=== PATIENT | female | born 1955 | race Caucasian/White ===

== ENCOUNTER → 2018-12-06 17:28 | Outpatient (CLI) | payer OTHER ==
[2014-11-01 09:02] VITALS: BMI 38.8
[~2018-12-06 17:28] MED LIST: CYMBALTA30 MG PO; HYDROCODONE-APA1 TAB; MULTIPLE VITAMI1 TA1 PO; RELAFEN500 MG PO; RESTORIL15 MG PO; SYNTHROID75 MCG PO; VITAMIN D31000 UNIT PO
== END | disposition home or self-care (01) ==
LOC: D.LABREF 17:28
PROVIDERS: ATTEND Orthopaedic Surgery
DX: M19.012 Primary osteoarthritis, left shoulder (principal)

== ENCOUNTER → 2019-11-07 12:05 | Outpatient (CLI) | payer BC ==
[2019-05-01 12:35] VITALS: BMI 38.8
[~2019-11-07 12:05] MED LIST changes: +COREG25 MG PO; +DIOVAN320 MG PO; +PERCOCET 10-321 EAC1 PO
[2019-11-07 12:30] LABS: BASOPHILS 0.2 % (0-2); EOSINOPHILS 1.1 % (0-7); HEMATOCRIT 39.3 % (36.0-48.0); HEMOGLOBIN 12.6 g/dL (12-16); IMMATURE GRANULOCYTES 0.3 % (0-5); LYMPHOCYTES 34.2 % (15-50); MCH 30.4 pg (26.0-34.0); MCHC 32.1 g/dL (31.0-37.0); MCV 94.9 fL (80.0-100.0); MEAN PLATELET VOLUME 9.4 fL (7.4-10.4); MONOCYTES 5.9 % (2-11); NEUTROPHILS 58.3 % (40-80); PLATELET COUNT 239 10x3/uL (130-400); RBC 4.14 10x6/uL (4.00-5.40); RDW 13.7 % (11.5-14.5); WBC 6.3 10x3/uL (4.8-10.8)
[2019-11-07 12:49] LABS: ALBUMIN 3.9 g/dL (3.4-5.0); ANION GAP 9.2 mmol/L (8-16); BILIRUBIN - TOTAL 0.29 mg/dL (0.2-1.3); C-REACTIVE PROTEIN 1.1 mg/dL (0.0-0.9); CARBON DIOXIDE 31.7 mmol/L (21.0-32.0); CREATININE - SERUM 0.9 mg/dL (0.6-1.3); POTASSIUM - SERUM 4.9 mmol/L (3.5-5.1); PROTEIN - SERUM 7.6 g/dL (6.4-8.2)
[2019-11-07 13:41] LABS: ERYTHROCYTE SEDIMENTATION RATE 12 mm/hr (0-30)
== END | disposition home or self-care (01) ==
LOC: D.LAB 12:05
PROVIDERS: ATTEND Orthopaedic Surgery
DX: M25.511 Pain in right shoulder (principal)

== ENCOUNTER → 2019-11-15 11:48 | Outpatient (CLI) | payer BC ==
[2019-05-01 12:35] VITALS: BMI 38.8
== END | disposition home or self-care (01) ==
LOC: D.NM 11:45
PROVIDERS: ATTEND Orthopaedic Surgery
DX: Z96.611 Presence of right artificial shoulder joint (principal)

== ENCOUNTER → 2019-11-22 18:37 | Outpatient (CLI) | payer BC ==
[2019-05-01 12:35] VITALS: BMI 38.8
== END | disposition home or self-care (01) ==
LOC: D.LABREF 18:37
PROVIDERS: ATTEND Orthopaedic Surgery
DX: M25.511 Pain in right shoulder (principal)

== ENCOUNTER 2019-11-27 15:14 | Inpatient (IN) | payer BC ==
[~2019-11-27] VITALS: Ht 177.8 cm; Wt 118.2 kg
[~2019-11-27 15:14] MED LIST changes: -VITAMIN D31000 UNIT PO; +Vitamin D PO
[2019-12-06] MEDS ORDERED: MUPIROCIN22 GM TOPICAL (13:32)
[2019-12-06 14:28] LABS: BASOPHILS 0.3 % (0-2); EOSINOPHILS 1.9 % (0-7); HEMATOCRIT 36.7 % (36.0-48.0); HEMOGLOBIN 11.9 g/dL (12-16); IMMATURE GRANULOCYTES 0.3 % (0-5); MCHC 32.4 g/dL (31.0-37.0); MCV 95.6 fL (80.0-100.0); MEAN PLATELET VOLUME 9.3 fL (7.4-10.4); MONOCYTES 7.8 % (2-11); NEUTROPHILS 56.7 % (40-80); PLATELET COUNT 233 10x3/uL (130-400); RBC 3.84 10x6/uL (4.00-5.40); RDW 13.7 % (11.5-14.5); WBC 5.8 10x3/uL (4.8-10.8)
[2019-12-06 14:29] LABS: BILIRUBIN NEGATIVE (NEGATIVE); KETONE NEGATIVE (NEGATIVE); NITRITE NEGATIVE (NEGATIVE); UROBILINOGEN NORMAL (NORMAL)
[2019-12-06 14:35] LABS: ANION GAP 9.6 mmol/L (8-16); CALCIUM 8.6 mg/dL (8.5-10.1); CARBON DIOXIDE 29.8 mmol/L (21.0-32.0); CREATININE - SERUM 0.9 mg/dL (0.6-1.3); POTASSIUM - SERUM 4.4 mmol/L (3.5-5.1)
[2019-12-06 14:36] LABS: APTT 25.5 SECONDS (22.8-39.4); INR 0.91 (0.85-1.17); PROTIME 12.3 SECONDS (11.6-15.0)
[2019-12-11] VITALS (11 sets, daily range): BP systolic 133–165; BP diastolic 68–105; Ht 177.8 cm; Wt 118.2 kg
--- NOTE | 2019-12-11 11:34 | NUR ---
THROUGH TRAFFIC KEPT TO A MINIMUM. HIBACLENS AND ALCOHOL USED TO CLEAN BEFORE PREPPING. STERILE GOWNED AND GLOVED TO PREP WITH CHLORAPREP.
--- NOTE | 2019-12-11 13:30 | NUR ---
RECEIVED PT FROM RECOVERY. PT LAYING IN BED, A&O X4. PT ABLE TO ANSWER ALL QUESTIONS. SPOUSE PRESENT AT BEDSIDE. PIV IN LEFT HAND, PATENT AND INFUSING LR, NO REDNESS OR SWELLING. RIGHT SHOULDER IN SLING, DRSG C/D/I. PT C/O PAIN 5/10 AND STATES SHE IS FINE AND IT FEELS BETTER THEN IT DID PRIOR TO SX. EDUCATED PT ON CL AND NEEDS, VERBALIZED UNDERSTANDING. BED LOW, RAILS X2. CL IN REACH, WILL CONTINUE TO MONITOR.
--- NOTE | 2019-12-11 14:59 | MORECARE ---
CASE MANAGEMENT DISCHARGE SUMMARY PATIENT: STEVEN JANSEN UNIT: [id number] ADM DATE: 12/11/19 AGE: 64 : 55 SEX: F ROOM/BED: D.1209 AUTHOR: SUSAN,DOC PHYSICIAN: REFERRING PHYSICIAN: AILNA DICKERSON MD DATE OF SERVICE: 12/11/19 Discharge Plan Patient Name: STEVEN JANSEN Facility: [facility]:[place] : 1955 Planned Disposition: Home Anticipated Discharge Date: Discharge Date: Expected LOS: Initial Reviewer: [email or web address] Initial Review Date: 12/11/2019 Generated: 12/11/19 3:58 pm DCP- Discharge Planning Updated by [email or web address]: Pamela Holland on 12/11/19 1:[address] CM met with patient to discuss initial discharge planning. Patient is in agreement to proceed with the assessment, with her spouse at the bedside. Patient reports that she lives at home independently with her , KP Jansen ([phone]). Patient is drowsy/oriented. PCP: Dr. Morel. Pharmacy: [facility], [address] Patient states she has been able to obtain all of her prescribed medications. HHS: No. DME: CPAP. Patient gives permission to speak with spouse. 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 CM discussed the availability of HH, Rehab, SNF, OP Therapy, DME services. Patient denies the need for additional services at this time and feels safe returning to previous environment. Patient denies hospitalization within the past 30 days. Patient denies the use of community resources DIRECTOR OF COLLECTIONS. Transportation at time of discharge: KP Jansen. CM will follow and assist with DC plans PRN. DCPIA - Discharge Planning Initial Assessment Updated by [email or web address]: Pamela Holland on 12/11/19 2:53 pm * Is the patient Alert and Oriented? Yes * PCP Dr. Morel * Pharmacy [facility] [address] * Preadmission Environment Home with Family * ADLs Independent * Equipment CPAP * Other Equipment NA * List name and contact numbers for known caregivers / representatives who currently or will assist patient after discharge: KP Jem (spouse) [phone] * Verbal permission to speak to the caregivers and representatives has been obtained from the patient. Yes * Community resources currently utilized None * Please name any agencies selected above. NA * Additional services required to return to the preadmission environment? No * Can the patient safely return to the preadmission environment? Yes * Has this patient been hospitalized within the prior 30 days at any hospital? No Patient Name: STEVEN JANSEN Page [id number] at 1459 All edits/amendments must be made on the electronic document DICTATION DATE: 12/11/198 CASHIER AND WAITER/WAITRESS: EL 12/11/198 RPT#: [id number] DC DATE: STATUS: ADM IN [facility] [address] [place] [address] END OF REPORT
--- NOTE | 2019-12-11 19:00 | NUR ---
PATIENT ALERT AND ORIENTED WATCHING TV WHEN ENTERING THE ROOM. PATIENT HAS RIGHT ARM IN SLING. PATIENT MOVES FINGERS WITH NO ISSUES. WARM TO TOUCH. CAPILLARY REFILL LESS THAN THREE SECONDS. PATIENT HAS ICE PACK TO RIGHT UPPER EXTREMETY. COMPLAINS OF PAIN 4/10 BUT DENIES PAIN PILL AT THIS TIME. IV INFUSING THROUGH PATENT LEFT HAND IV. INCENTIVE SPIROMETER AT BEDSIDE. ENCOURAGED USE. PATIENT USING WHEN EXITING THE ROOM. CALL LIGHT CLOSE. CPOC.
--- NOTE | 2019-12-11 19:36 | NUR ---
ANSWERED PATIENT CALL LIGHT. REQUESTING SOMETHING "SMALL" FOR PAIN. REVIEWED PAIN CONTROL OPTIONS WITH PATIENT. PATIENT REQUESTED PRN IV TORADOL. ADMINISTERED PER ORDER. PATIENT DENIES FURTHER NEEDS AT THIS TIME. CALL LIGHT REMAINS CLOSE. CPOC.
--- NOTE | 2019-12-11 20:36 | NUR ---
PATIENT REQUESTED TO TAKE 2100 MEDS AT 2200.
[2019-12-12 04:00] VITALS: BP 144/70
--- NOTE | 2019-12-12 04:33 | NUR ---
COVID SWAB COLLECTED AND SENT TO LAB
--- NOTE | 2019-12-12 07:15 | NUR ---
RECEIVED BEDSIDE REPORT. PT A&O X4, SITTING IN BED, DENIES NEEDS. PIV IN LEFT HAND, PATENT AND INFUSING D5 1/2 NS @ 100, NO REDNESS OR SWELLING. RIGHT SHOULDER IN SLING, DRSG C/D/I OVER INCISION SITE. PT ABLE TO AMBULATE WITH MIN ONE PERSON ASSIST. EDUCATED ON CL AND NEEDS, VERBALIZED UNDERSTANDING. BED LOW, CL IN REACH. WILL CONTINUE TO MONITOR.
--- NOTE | 2019-12-12 08:00 | NUR ---
PT C/O PAIN 11/05, PROVIDED MEDS PER ORDER.
[2019-12-12 08:15] VITALS: BP 130/55
[2019-12-12] MEDS ORDERED: PERCOCET 10-321 EAC1 PO (08:32)
[2019-12-12] MEDS ORDERED: TORADOL10 MG PO (08:33)
--- NOTE | 2019-12-12 11:25 | NUR ---
EDUCATED PT ON DISCHARGE INSTRUCTIONS, MEDICATIONS, NEXT APPOINTMENT, ACTIVITY, PT VERBALIZED UNDERSTANDING AND SIGNED D/C PAPERWORK. ESCORTED PT TO FRONT ENTRANCE VIA WHEELCHAIR.
--- NOTE | 2019-12-12 11:44 | MORECARE ---
CASE MANAGEMENT DISCHARGE SUMMARY PATIENT: STEVEN JANSEN UNIT: [id number] ADM DATE: 12/11/19 AGE: 64 : 55 SEX: F ROOM/BED: D.1209 AUTHOR: SUSAN,DOC PHYSICIAN: REFERRING PHYSICIAN: ALINA DICKERSON MD DATE OF SERVICE: 12/12/19 Discharge Plan Patient Name: STEVEN JANSEN Facility: [facility]:[place] : 1955 Planned Disposition: Home Anticipated Discharge Date: 12/12/19 Discharge Date: 12/12/2019 Expected LOS: 1 Initial Reviewer: [email or web address] Initial Review Date: 12/11/2019 Generated: 12/12/19 12:43 pm DCP- Discharge Planning Updated by [email or web address]: Pamela Holland on 12/11/19 1:[address] CM met with patient to discuss initial discharge planning. Patient is in agreement to proceed with the assessment, with her spouse at the bedside. Patient reports that she lives at home independently with her , KP Jansen ([phone]). Patient is drowsy/oriented. PCP: Dr. Morel. Pharmacy: [facility], [address] Patient states she has been able to obtain all of her prescribed medications. HHS: No. DME: CPAP. Patient gives permission to speak with spouse. 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 CM discussed the availability of HH, Rehab, SNF, OP Therapy, DME services. Patient denies the need for additional services at this time and feels safe returning to previous environment. Patient denies hospitalization within the past 30 days. 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 Transportation at time of discharge: KP Jansen. CM will follow and assist with DC plans PRN. DCPIA - Discharge Planning Initial Assessment Updated by [email or web address]: Pamela Holland on 12/11/19 2:53 pm * Is the patient Alert and Oriented? Yes * PCP Dr. Morel * Pharmacy [facility] [address] * Preadmission Environment Home with Family * ADLs Independent * Equipment CPAP * Other Equipment NA * List name and contact numbers for known caregivers / representatives who currently or will assist patient after discharge: KP Jansen (spouse) [phone] * Verbal permission to speak to the caregivers and representatives has been obtained from the patient. Yes * Community resources currently utilized None * Please name any agencies selected above. NA * Additional services required to return to the preadmission environment? No * Can the patient safely return to the preadmission environment? Yes * Has this patient been hospitalized within the prior 30 days at any hospital? No Last DP export: 12/11/19 1:59 p Patient Name: STEVEN JANSEN Page [id number] at 1144 All edits/amendments must be made on the electronic document DICTATION DATE: 12/12/19 1143 CULINARY WORKER: EL 12/12/19 1143 RPT#: [id number] DC DATE:12/12/19 STATUS: DIS IN [facility] [address] [place] [address] END OF REPORT
--- NOTE | 2019-12-13 13:49 | OP ---
PATIENT NAME: NICKIE JANSEN MEDICAL RECORD: [id number] :55 LOCATION:D. D.1209 ADMISSION DATE:12/11/19 SURGEON: ALINA DICKERSON MD DATE OF OPERATION: 12/11/2019 PREOPERATIVE DIAGNOSIS: Painful total shoulder arthroplasty of the right shoulder. POSTOPERATIVE DIAGNOSIS: Painful total shoulder arthroplasty of the right shoulder. PROCEDURE: Revision total shoulder arthroplasty of the right shoulder. SURGEON: Alina Dickerson MD NOVELTIES SALES REPRESENTATIVE: ARACELI Cedeno and WILI Kent INTRAOPERATIVE COMPLICATIONS: None. SUMMARY OF PATHOLOGIC FINDINGS: Indeed, the patient had a loose glenoid component consistent with preoperative diagnosis as well as imaging. 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 Since that time, she has done rehabilitation and has become more and more painful. Subsequent arthrogram showed that there was contrast behind the polyethylene suggesting that it was loose and indeed that was encountered today. OPERATIVE SUMMARY IN DETAIL: After obtaining the appropriate preoperative orthopedic surgery consent as well as anesthetic consultation, evaluation and clearance, the patient was brought to the operating room and placed on the operating table in supine position. After general laryngeal mask airway was administered, the patient was placed in the beach chair position. All pressure points were well padded. She was held firmly to the operating table using vacuum pack suction system. Right upper extremity and shoulder were then prepped and draped in routine sterile fashion. The arm was held in the Trimano arm holding device. Deltopectoral incision was taken down. The cephalic vein was identified and protected throughout the case. The pectoralis was gently retracted medially while the deltoid was retracted over the humeral head using the brown retractor. Conjoined tendon was identified and then very gently retracted. Upon taking down the subscapularis in a peel substantial amount of synovitis as well as joint fluid was noted consistent with her pain. The head of the clips shoulder was detached and the base of the clips was very sound At this point, the glenoid was completely exposed and with a simple pull of a Brenda, it was removed with all components. There in indicating looseness as predicted preoperatively. At this point, reaming was then prepared for the metal-backed glenoid from [employer]. The baseplate was then tamped into place and affixed with the compression and locking screws superiorly and inferiorly. At this point, the polyethylene was snapped into the metal baseplate for good position and fit and fill with excellent holding. At this point, the humeral head was replaced with a new humeral head. The exact same size is the one that the patient had before. This was tamped on the Jimenez taper. The shoulder was reduced and had perfect 1/3-1/2 posterior subluxation. The wound was then filled with a gram of vancomycin and a gram of tobramycin. The subscapularis was reapproximated to the lesser tuberosity in transosseous fashion with #2 OPERATIVE REPORT [id number] NICKIE JANSEN. At this point, a #1 Vicryl, 2-0 Vicryl used for final skin closure, along with skin kan. Sterile dressings were applied. The patient was awakened and taken to the recovery room in stable condition. All final needle and sponge counts were correct. TRANSINT:[id number] Voice Confirmation ID: [id number] DOCUMENT ID: [id number] TUAN GODOY, ALINA ARANA at 1349 CC: [id number] DICTATION DATE: 12/11/19 1313 IMAGE EDITOR: 12/12/19 0002 DIS IN 12/12/19 [id number] [place] [address]
== END 2019-12-12 11:27 | disposition home or self-care (01) | DRG 483 ==
LOC: D.SDCHOLD 12-11 07:50 → D.M3 12-11 07:50 → D.SDCHOLD 12-11 09:15 → D.M3 12-11 13:24
PROVIDERS: ADMIT Orthopaedic Surgery; ATTEND Orthopaedic Surgery
PROC: 0RPJ0JZ Removal of Synthetic Substitute from Right Shoulder Joint, Open Approach (ICD-10-PCS; 2019-12-11)
PROC: 0RRJ0JZ Replacement of Right Shoulder Joint with Synthetic Substitute, Open Approach (ICD-10-PCS; principal; 2019-12-11 09:45)
DX: T84.84XA Pain due to internal orthopedic prosthetic devices, implants and grafts, initial encounter (principal); X58.XXXA Exposure to other specified factors, initial encounter